=== PATIENT | male | born 1970 | race Caucasian/White ===

== ENCOUNTER 2018-12-20 11:29 | Emergency (ER) | payer MEDICAID ==
[~2018-12-20] VITALS: Wt 102.8 kg
[2018-12-20 11:34] VITALS: BP 158/90; PULSE 91; RESP 18
[2018-12-20] MEDS ORDERED: NAPR-985 PO (13:31)
[2018-12-20] MEDS ORDERED: HYDR-4011 PO (13:31)
--- NOTE | 2018-12-20 14:04 | ERD ---
ER Documentation Chief Complaint Chief Complaint LEFT FOOT PAIN HPI 48-year-old male presenting with pain to left foot. 3 days ago patient was walking in his ankle. He had pain to his foot ever since. He denies any numbness and tingling and he has not taken medications for pain. He denies other medical problems. NKDA. Surgical history denies. Social history denies ROS All systems reviewed and are negative except as per history of present illness. Medications Home Meds Active Scripts Naproxen* (Naprosyn*) 500 Mg Tablet, 500 MG PO BID PRN for PAIN AND/OR INFLAMMATION, #30 TAB Prov:GEN NEWMAN PA-C 12/20/18 Hydrocodone/Acetaminophen ([place] 5-325 Tablet) 1 Each Tablet, 1 TAB PO Q6H PRN for PAIN, #7 TAB Prov:GEN NEWMAN PA-C 12/20/18 Allergies Allergies: Coded Allergies: No Known Allergy (Unverified , 12/20/18) PMhx/Soc Medical and Surgical Hx: pt denies Medical Hx, pt denies Surgical Hx Hx Alcohol Use: No Hx Substance Use: No Hx Tobacco Use: No Smoking Status: Never smoker FmHx Family History: No diabetes, No coronary disease, No other Physical Exam Vitals Vital Signs Date Temp Pulse Resp B/P (MAP) Pulse Ox O2 O2 Flow FiO2 Time Delivery Rate 12/20/18 98.7 91 18 158/90 99 11:34 (112) Physical Exam GENERAL: The patient is well-appearing, well-nourished, in no acute distress CHEST: Clear to auscultation bilaterally. There are no rales, wheezes or rhonchi. HEART: Regular rate and rhythm. No murmurs, clicks, rubs or gallops. No S3 or S4. EXTREMITIES: Tender to palpation over the base the fifth metatarsals. Mild tenderness to palpation over the lateral left malleolus. No obvious deformity. Normal range of motion in flexion and extension. Strength 5 out of 5. NEUROLOGIC: Motor strength in all 4 extremities with 5 out of 5 strength. Sensation grossly intact. SKIN: There is no apparent rash or petechiae. The skin is warm and dry. Procedures/MDM DIAGNOSTIC IMAGING REPORT Patient: PAOLO GORE : 1970 Age: 48 Sex: M MR #: [id number] DOS: 12/20/18 1221 Ordering MD: DELL NEWMAN PA-C Location: [facility] Room/Bed: PROCEDURE: XR Left Ankle CLINICAL INDICATION: Pain TECHNIQUE: Standard 3 view radiographs were submitted. COMPARISON: None FINDINGS: Osseous structures: There is a nondisplaced transverse fracture through the base of the left fifth metatarsal. No other fractures identified. Calcaneal spurring is seen at the insertion of the Achilles tendon and plantar aponeurosis. Joint spaces: Well maintained with no significant erosions or spurring evident. Soft tissues: There is soft tissue swelling about the lateral malleolus suspicious for a sprain. IMPRESSION: 1. Nondisplaced transverse fracture involving the base of the left fifth metatarsal. 2. Calcaneal spurring 3. Soft tissue swelling about the lateral malleolus suspicious for a sprain. DIAGNOSTIC IMAGING REPORT Patient: PAOLO GORE : 1970 Age: 48 Sex: M MR #: [id number] DOS: 12/20/18 1221 Ordering MD: DELL NEWMAN PA-C Location: [facility] Room/Bed: PROCEDURE: XR Left Foot CLINICAL INDICATION: Pain TECHNIQUE: AP, oblique, and lateral radiographs were submitted. COMPARISON: None FINDINGS: Osseous structures: There is a nondisplaced transverse fracture through the base of the left fifth metatarsal. No other fracture is evident. Joint spaces: There is calcaneal spurring at the insertion of the Achilles tendon and plantar aponeurosis. Soft tissues: appear unremarkable. IMPRESSION: 1. Nondisplaced transverse fracture involving the base of the left fifth metatarsal. 2. Calcaneal spurring. ER course:Short ankle splint applied in ED. Patient is given crutches. MDM: 48-year-old male presenting with pain to left foot. Patient has a fracture noted to the base of the fifth metatarsal. Patient likely has a sprain to ankle. Patient is placed in splint in the emergency room. Patient is neuro intact pre-and post splint application. Patient is recommended follow-up with orthopedist. Patient is told symptoms change or worsen to return immediately to the ER. All questions answered at discharge Departure Diagnosis: Primary Impression: Dancer's fracture Condition: Stable Patient Instructions: Fracture, Foot Referrals: TUNG JOHNSON MD [facility] Hours: Mon-Mon 9:00 AM - 5:00 PM Additional Instructions: FOLLOW UP WITH YOUR PRIMARY CARE PHYSICIAN TOMORROW.Return to this facility if y ou are not improving as expected. GEN NEWMAN PA-C Dec 20, 2018 14:04
== END 2018-12-20 13:57 | disposition home or self-care (01) ==
LOC: FTE 11:29
DX: S92.355A Nondisplaced fracture of fifth metatarsal bone, left foot, initial encounter for closed fracture (principal); X58.XXXA Exposure to other specified factors, initial encounter; Y92.9 Unspecified place or not applicable
CPT/HCPCS: 73610